=== PATIENT | male | born 1975 | race Caucasian/White ===

== ENCOUNTER 2020-12-07 07:19 | Emergency (ER) | payer OTHER ==
[2020-12-07 07:24] VITALS: BP 124/89; PULSE 99; RESP 20; TEMP 98.9
--- NOTE | 2020-12-07 07:43 | ED ---
General Adult HPI - General Chief complaint: Skin/Abscess/Foreign Body Stated complaint: Allergic reaction Time Seen by Provider: 12/07/20 07:20 Source: patient, RN notes reviewed, old records reviewed Mode of arrival: ambulatory Limitations: no limitations - History of Present Illness Initial comments: This is a 45-year-old male who presents emergency Department with some redness and a right posterior wrist. Patient states it started last night but today the redness is gotten worse in the pimple is gotten whiter. Patient states there is tender. Patient states is no streaking up the arm. Patient doesn't know if he got bit by something. Patient denies any fever chills. Patient denies any history of MRSA - Related Data Previous Rx's Medication Instructions Recorded Cephalexin [Keflex] 500 mg PO Q6HR #28 cap 12/07/20 Sulfamethox-Tmp 800-160Mg [Bactrim 1 each PO Q12HR #14 tab 12/07/20 DS 800-160 mg] Allergies Allergy/AdvReac Type Severity Reaction Status Date / Time codeine Allergy Rash/Hives Verified 12/07/20 07:25 Review of Systems ROS Statement: Those systems with pertinent positive or pertinent negative responses have been documented in the HPI. ROS Other: All systems not noted in ROS Statement are negative. Past Medical History Past Medical History: Diabetes Mellitus History of Any Multi-Drug Resistant Organisms: None Reported Past Surgical History: Cholecystectomy Additional Past Surgical History / Comment(s): Spleen, Pancreas Past Psychological History: Panic Disorder, Schizophrenia Smoking Status: Current every day smoker Past Alcohol Use History: None Reported Past Drug Use History: Marijuana General Exam - General Exam Comments Initial Comments: GENERAL Patient is well-developed and well-nourished. Patient is in mild distress. EYES Patient's pupils are equal and round. Extraocular motion is intact SKIN Right posterior wrist has a small area of redness measuring about 4 cm in the center is a small white pimple NEURO The patient is alert and oriented 3 PYSCH Patient has normal interpersonal interactions. MUSCULOSKELETAL All 4 extremities and full range of motion Limitations: no limitations Course Vital Signs 12/07/20 07:21 Temperature 98.9 F Pulse Rate 99 Respiratory 20 Rate Blood Pressure 124/89 O2 Sat by Pulse 99 Oximetry Procedures - Incision & Drainage Consent Obtained: verbal consent Site: other (Wrist) I&D Cleaning Method: Betadine Needle Aspiration Performed?: Yes Irrigation Performed?: No I&D Drainage Obtained: Pus, Blood Culture Obtained?: Yes Complications: pain Patient Tolerated Procedure: well Medical Decision Making - Medical Decision Making Patient was given a gram of Ancef IM in the emergency department. I I&D the abscess small amount of pus came out it was cultured. Patient was sent home with Bactrim and Keflex. Disposition Clinical Impression: Abscess, wrist Disposition: HOME SELF-CARE Instructions (If sedation given, give patient instructions): Abscess (ED) Prescriptions: Sulfamethox-Tmp 800-160Mg [Bactrim DS 800-160 mg] 1 each PO Q12HR #14 tab Cephalexin [Keflex] 500 mg PO Q6HR #28 cap Is patient prescribed a controlled substance at d/c from ED?: No Referrals: None,Stated [Primary Care Provider] - 1-2 days Time of Disposition: 07:47
[2020-12-07] MEDS ORDERED: ceFAZolin 1,000 MG VIAL (IM USE) IM STA (07:47)
== END 2020-12-07 07:57 | disposition home or self-care (01) ==
LOC: EC 07:19
DX: L02.413 Cutaneous abscess of right upper limb (principal)
CPT/HCPCS: 87070; 87205; 99283; 10060; 96372; J0690

== ENCOUNTER 2021-02-10 13:27 | Inpatient (IN) | payer OTHER ==
[2021-02-10] MEDS ORDERED: SODIUM CHLORIDE 0.9% 1,000 ML IV STA ×2 (13:33→15:17)
[2021-02-10] MEDS ORDERED: SODIUM CHLORIDE 0.9% 500 ML 500 ML IV ONE (13:33)
[2021-02-10] MEDS ORDERED: NALOXONE 0.4 MG/ML 1 ML VIAL IM STA (13:33)
[2021-02-10] MEDS ORDERED: DIPH,PERTUS(ACELL)TETVAC-LF 0.5 ML VIAL IM ONE (13:43)
[2021-02-10 13:45] LABS: Glucose,Whole Blood 167 mg/dL (75-99)
--- NOTE | 2021-02-10 13:47 | ED ---
Altered Mental Status HPI - General Chief Complaint: Altered Mental Status Stated Complaint: Fall/head injury Time Seen by Provider: 02/10/21 13:27 Source: patient, EMS, RN notes reviewed Mode of arrival: EMS Limitations: altered mental status, physical limitation - History of Present Illness Initial Comments: This a 45-year-old male with a history of schizophrenia and anxiety disorder possibly bipolar disorder and possibly a seizure disorder who was found by family lying on the ground outside he apparently had been seen in a car outside his mother's residence. He was arousable to verbal and physical stimulus he did have complaints of headache and neck pain. He did have evidence of a laceration to the left posterior occipital scalp area. No seizure reported. The patient blood glucose was adequate. Lites modifying factors at this time no other history available at this time MD Complaint: altered mental status - Related Data Home Medications Medication Instructions Recorded Confirmed Albuterol Sulfate [Albuterol 2 puff INHALATION RT-Q4H PRN 02/10/21 02/10/21 Sulfate Hfa] Ferrous Sulfate [Feosol] 325 mg PO BID 02/10/21 02/10/21 Fluticasone/Salmeterol [Advair 1 puff INHALATION RT-BID 02/10/21 02/10/21 250-50 Diskus] Gabapentin [Neurontin] 1,200 mg PO TID 02/10/21 02/10/21 Hyoscyamine Sulfate [Levsin] 0.125 mg PO Q6H PRN 02/10/21 02/10/21 Insulin Glargine,Hum.rec.anlog 48 unit SQ HS 02/10/21 02/10/21 [Lantus Solostar] Insulin Lispro [humaLOG Kwikpen] 12 unit SQ AC-BID@0800,1200 02/10/21 02/10/21 Insulin Lispro [humaLOG Kwikpen] 14 unit SQ AC-SUPPER 02/10/21 02/10/21 Insulin Lispro [humaLOG Kwikpen] See Protocol SQ AC-TID 02/10/21 02/10/21 Lidocaine 5% Patch [Lidoderm] 1 patch TOPICAL TID 02/10/21 02/10/21 Mirtazapine [Remeron] 30 mg PO HS 02/10/21 02/10/21 QUEtiapine [SEROquel] 400 mg PO HS 02/10/21 02/10/21 Rosuvastatin Calcium [Crestor] 10 mg PO DAILY 02/10/21 02/10/21 cloNIDine HCL [Catapres] 0.2 mg PO TID 02/10/21 02/10/21 haloperidoL [Haldol] 2 mg PO BID PRN 02/10/21 02/10/21 hydrOXYzine HCL 10 mg PO TID PRN 02/10/21 02/10/21 Allergies Allergy/AdvReac Type Severity Reaction Status Date / Time codeine Allergy Rash/Hives Verified 02/10/21 17:06 Review of Systems ROS Statement: Those systems with pertinent positive or pertinent negative responses have been documented in the HPI. ROS Other: All systems not noted in ROS Statement are negative. Past Medical History Past Medical History: Diabetes Mellitus History of Any Multi-Drug Resistant Organisms: None Reported Past Surgical History: Cholecystectomy Additional Past Surgical History / Comment(s): Spleen, Pancreas Past Psychological History: Panic Disorder, Schizophrenia Smoking Status: Current every day smoker Past Alcohol Use History: None Reported Past Drug Use History: Marijuana General Exam - General Exam Comments Initial Comments: Is a well-developed sec appearing male who is awake lethargic but does respond to questioning. Limitations: altered mental status, physical limitation General appearance: alert, lethargic Head exam: Present: other (Approximately 2 cm laceration seen the left occipital scalp no active bleeding no step-off or crepitation) Eye exam: Present: normal appearance, PERRL, EOMI ENT exam: Present: mucous membranes dry Neck exam: Present: normal inspection. Absent: tenderness, meningismus, lymphadenopathy Respiratory exam: Present: normal lung sounds bilaterally. Absent: respiratory distress, wheezes, rales, rhonchi, stridor Cardiovascular Exam: Present: regular rate, normal rhythm, normal heart sounds. Absent: systolic murmur, diastolic murmur, rubs, gallop, clicks GI/Abdominal exam: Present: soft, normal bowel sounds. Absent: distended, tenderness, guarding, rebound, rigid Extremities exam: Present: normal inspection, full ROM, normal capillary refill. Absent: tenderness, pedal edema, joint swelling, calf tenderness Back exam: Present: normal inspection Neurological exam: Present: alert, oriented X3, CN II-XII intact Psychiatric exam: Present: normal affect, normal mood Skin exam: Present: warm, dry, intact, normal color. Absent: rash Course Vital Signs 02/10/21 02/10/21 02/10/21 13:37 13:52 14:14 Temperature 97.6 F Pulse Rate 70 Respiratory 18 16 Rate Blood Pressure 99/71 103/67 O2 Sat by Pulse 100 Oximetry 02/10/21 02/10/21 15:16 16:21 Temperature Pulse Rate 75 82 Respiratory 18 18 Rate Blood Pressure 106/71 104/72 O2 Sat by Pulse 98 95 Oximetry Procedures - Laceration Laceration #1 Consent Obtained: verbal consent Indication: laceration Site: scalp Description: irregular, clean Anesthetic Used: lidocaine 1% Anesthesia Technique: local infiltration Amount (mls): 3 Type of Sutures: other (4 ann marie) Complications: other (None) Patient Tolerated Procedure: well Medical Decision Making - Medical Decision Making I did discuss findings with the patient's mother as well as with Dr. by Dr. Longo who did come the emergency department see the patient patient will be admitted for treatment of what appears be a stroke with prolonged postictal state. Dr. Vilma tavera consulted - Lab Data Result diagrams: 02/10/21 13:57 02/10/21 13:57 Lab Results 02/10/21 02/10/21 02/10/21 Range/Units 13:44 13:57 13:57 WBC 12.0 H (3.8-10.6) k/uL RBC 4.77 (4.30-5.90) m/uL Hgb 13.8 (13.0-17.5) gm/dL Hct 41.4 (39.0-53.0) % MCV 86.7 (80.0-100.0) fL MCH 28.9 (25.0-35.0) pg MCHC 33.4 (31.0-37.0) g/dL RDW 14.1 (11.5-15.5) % Plt Count 426 (150-450) k/uL MPV 7.9 Neutrophils % 67 % Lymphocytes % 25 % Monocytes % 6 % Eosinophils % 1 % Basophils % 1 % Neutrophils # 8.0 H (1.3-7.7) k/uL Lymphocytes # 3.0 (1.0-4.8) k/uL Monocytes # 0.7 (0-1.0) k/uL Eosinophils # 0.1 (0-0.7) k/uL Basophils # 0.1 (0-0.2) k/uL PT 12.2 H (9.0-12.0) sec INR 1.2 H (<1.2) APTT 25.1 (22.0-30.0) sec Sodium (137-145) mmol/L Potassium (3.5-5.1) mmol/L Chloride (98-107) mmol/L Carbon Dioxide (22-30) mmol/L Anion Gap mmol/L BUN (9-20) mg/dL Creatinine (0.66-1.25) mg/dL Est GFR (CKD-EPI)AfAm (>60 ml/min/1.73 sqM) Est GFR (CKD-EPI)NonAf (>60 ml/min/1.73 sqM) Glucose (74-99) mg/dL POC Glucose (mg/dL) 167 H (75-99) mg/dL POC Glu Surgical Sales Representative ID Azalia James Lactic Ac Sepsis Rflx Plasma Lactic Acid Aravind (0.7-2.0) mmol/L Calcium (8.4-10.2) mg/dL Magnesium (1.6-2.3) mg/dL Total Bilirubin (0.2-1.3) mg/dL AST (17-59) U/L ALT (4-49) U/L Alkaline Phosphatase (38-126) U/L Ammonia (<30) umol/L Creatine Kinase (55-170) U/L Troponin I (0.000-0.034) ng/mL Total Protein (6.3-8.2) g/dL Albumin (3.5-5.0) g/dL Lipase (23-300) U/L TSH (0.465-4.680) mIU/L Serum Alcohol mg/dL 02/10/21 02/10/21 02/10/21 Range/Units 13:57 13:57 13:57 WBC (3.8-10.6) k/uL RBC (4.30-5.90) m/uL Hgb (13.0-17.5) gm/dL Hct (39.0-53.0) % MCV (80.0-100.0) fL MCH (25.0-35.0) pg MCHC (31.0-37.0) g/dL RDW (11.5-15.5) % Plt Count (150-450) k/uL MPV Neutrophils % % Lymphocytes % % Monocytes % % Eosinophils % % Basophils % % Neutrophils # (1.3-7.7) k/uL Lymphocytes # (1.0-4.8) k/uL Monocytes # (0-1.0) k/uL Eosinophils # (0-0.7) k/uL Basophils # (0-0.2) k/uL PT (9.0-12.0) sec INR (<1.2) APTT (22.0-30.0) sec Sodium 136 L (137-145) mmol/L Potassium 4.4 (3.5-5.1) mmol/L Chloride 102 (98-107) mmol/L Carbon Dioxide 25 (22-30) mmol/L Anion Gap 9 mmol/L BUN 16 (9-20) mg/dL Creatinine 1.62 H (0.66-1.25) mg/dL Est GFR (CKD-EPI)AfAm 59 (>60 ml/min/1.73 sqM) Est GFR (CKD-EPI)NonAf 51 (>60 ml/min/1.73 sqM) Glucose 155 H (74-99) mg/dL POC Glucose (mg/dL) (75-99) mg/dL POC Glu Surgical Sales Representative ID Lactic Ac Sepsis Rflx Plasma Lactic Acid Aravind 2.3 H* (0.7-2.0) mmol/L Calcium 10.4 H (8.4-10.2) mg/dL Magnesium 2.1 (1.6-2.3) mg/dL Total Bilirubin 0.6 (0.2-1.3) mg/dL AST 30 (17-59) U/L ALT 26 (4-49) U/L Alkaline Phosphatase 111 (38-126) U/L Ammonia 17 (<30) umol/L Creatine Kinase 104 (55-170) U/L Troponin I <0.012 (0.000-0.034) ng/mL Total Protein 7.5 (6.3-8.2) g/dL Albumin 4.5 (3.5-5.0) g/dL Lipase 74 (23-300) U/L TSH 1.640 (0.465-4.680) mIU/L Serum Alcohol <10 mg/dL 02/10/21 Range/Units 14:21 WBC (3.8-10.6) k/uL RBC (4.30-5.90) m/uL Hgb (13.0-17.5) gm/dL Hct (39.0-53.0) % MCV (80.0-100.0) fL MCH (25.0-35.0) pg MCHC (31.0-37.0) g/dL RDW (11.5-15.5) % Plt Count (150-450) k/uL MPV Neutrophils % % Lymphocytes % % Monocytes % % Eosinophils % % Basophils % % Neutrophils # (1.3-7.7) k/uL Lymphocytes # (1.0-4.8) k/uL Monocytes # (0-1.0) k/uL Eosinophils # (0-0.7) k/uL Basophils # (0-0.2) k/uL PT (9.0-12.0) sec INR (<1.2) APTT (22.0-30.0) sec Sodium (137-145) mmol/L Potassium (3.5-5.1) mmol/L Chloride (98-107) mmol/L Carbon Dioxide (22-30) mmol/L Anion Gap mmol/L BUN (9-20) mg/dL Creatinine (0.66-1.25) mg/dL Est GFR (CKD-EPI)AfAm (>60 ml/min/1.73 sqM) Est GFR (CKD-EPI)NonAf (>60 ml/min/1.73 sqM) Glucose (74-99) mg/dL POC Glucose (mg/dL) (75-99) mg/dL POC Glu Surgical Sales Representative ID Lactic Ac Sepsis Rflx Y Plasma Lactic Acid Aravind (0.7-2.0) mmol/L Calcium (8.4-10.2) mg/dL Magnesium (1.6-2.3) mg/dL Total Bilirubin (0.2-1.3) mg/dL AST (17-59) U/L ALT (4-49) U/L Alkaline Phosphatase (38-126) U/L Ammonia (<30) umol/L Creatine Kinase (55-170) U/L Troponin I (0.000-0.034) ng/mL Total Protein (6.3-8.2) g/dL Albumin (3.5-5.0) g/dL Lipase (23-300) U/L TSH (0.465-4.680) mIU/L Serum Alcohol mg/dL - EKG Data -: EKG Interpreted by Me EKG Comments: Sinus rhythm at 74. Interval 140 QRS duration 88 QT since QTC 420/475 nonspecific T-wave configuration prolonged QT - Radiology Data Radiology results: report reviewed (Imaging reviewed no evidence of acute findings other than scalp laceration I did remove the cervical collar and 1605 p.m.), image reviewed Disposition Clinical Impression: Seizure, Post-ictal confusion, Scalp laceration, Smoker Disposition: ADMITTED IP TO THIS [facility] Condition: Fair
--- NOTE | 2021-02-10 13:58 | XR ---
EXAMINATION TYPE: XR chest 1V portable DATE OF EXAM: 02/10/2021 Comparison: 10/29/2012 Clinical History: 45-year-old male confusion, altered mental status Findings: The cardiomediastinal silhouette, aorta, and pulmonary vasculature are within normal limits. Mild in terstitial prominence as a chronic appearance. No consolidation or pleural effusion. Impression: Chronic appearing changes. No focal infiltrates seen.
[2021-02-10 14:09] LABS: Basophils # (A) 0.1 k/uL (0-0.2); Basophils % (A) 1 %; Eosinophils # (A) 0.1 k/uL (0-0.7); Eosinophils % (A) 1 %; HCT 41.4 % (39.0-53.0); HGB 13.8 gm/dL (13.0-17.5); Lymphocytes % (A) 25 %; MCH 28.9 pg (25.0-35.0); MCHC 33.4 g/dL (31.0-37.0); MCV 86.7 fL (80.0-100.0); Mean Platelet Volume 7.9; Monocytes # (A) 0.7 k/uL (0-1.0); Monocytes % (A) 6 %; Neutrophils % (A) 67 %; Platelet Count 426 k/uL (150-450); RBC 4.77 m/uL (4.30-5.90); RDW 14.1 % (11.5-15.5)
[2021-02-10 14:20] LABS: ALT 26 U/L (4-49); AST 30 U/L (17-59); African American GFR (CKD) 59 (>60 ml/min/1.73 sqM); Albumin 4.5 g/dL (3.5-5.0); Alcohol <10 mg/dL; Alkaline Phosphatase 111 U/L (38-126); Anion Gap 9 mmol/L; Blood Urea Nitrogen 16 mg/dL (9-20); Calcium 10.4 mg/dL (8.4-10.2); Carbon Dioxide 25 mmol/L (22-30); Chloride 102 mmol/L (98-107); Creatine Kinase 104 U/L (55-170); Glucose 155 mg/dL (74-99); Lipase 74 U/L (23-300); Magnesium 2.1 mg/dL (1.6-2.3); Non-African American GFR(CKD) 51 (>60 ml/min/1.73 sqM); Potassium 4.4 mmol/L (3.5-5.1); Sodium 136 mmol/L (137-145); Total Bilirubin 0.6 mg/dL (0.2-1.3); Total Protein 7.5 g/dL (6.3-8.2)
[2021-02-10 14:21] LABS: Lactic Acid, Venous 2.3 mmol/L (0.7-2.0)
[2021-02-10 14:27] LABS: INR 1.2 (<1.2); Partial Thromboplastin Time 25.1 sec (22.0-30.0); Prothrombin Time 12.2 sec (9.0-12.0)
--- NOTE | 2021-02-10 14:49 | CT ---
EXAMINATION TYPE: CT brain ektaine wo con DATE OF EXAM: 02/10/2021 COMPARISON: Brain 02/02/2012 HISTORY: 45-year-old male pain after fall with blow to back of head, laceration CT DLP: 1406 mGycm Automated exposure control for dose reduction was used. Technique: Examination of the head was done in axial plane without intravenous contrast. Coronal and sagittal reconstructions performed. CT of the cervical spine was obtained in axial plane without intravenous injection of contrast mater ial. Coronal and sagittal reformatted images were obtained from the axial views for evaluation of f ractures, spinal alignment and canal. FINDINGS: Head: There is no evidence of acute intracranial hemorrhage, acute ischemic changes, mass, mass-effect, or extra-axial fluid collection. There is no effacement of cerebral sulci or basal subarachnoid cister ns. There is no hydrocephalus. There is no midline shift. Higginbotham-white matter distinction is preserv ed. There is a left parietal scalp injury/laceration. No underlying calvarial fracture. Mild mucosal thickening ethmoid air cells. Mastoid air cells well pneumatized. Orbits and globes are intact. Cervical spine: No craniocervical junction abnormality, predental space widening, or prevertebral soft tissue swellin g. Straightening of the normal cervical lordosis. Prominent upper cervical lymph nodes measuring up t o 1.2 cm on the right. Bilateral lingual tonsillar hypertrophy. No acute fracture of the cervical spine. Alignment is maintained. Disc interspaces are relatively aaron ntained. Mild uncovertebral joint spurring upper to mid cervical spine. Sagittal and coronal reformatted images confirm above findings. COMBINED IMPRESSION: 1. Left parietal scalp laceration. No underlying acute intracranial abnormality seen. 2. No acute fracture or malalignment of the cervical spine. 3. Some prominent upper cervical lymph nodes on the right measure 1.2 cm. These are probably reactive . Patient can be followed clinically to exclude any enlarging palpable lymph nodes in the neck.
[2021-02-10] MEDS ORDERED: levETIRAcetam IV 1,000 MG in SALINE 1 100ML.BAG IVPB STA (16:22)
[2021-02-10] MEDS ORDERED: NALOXONE 0.4 MG/ML 1 ML VIAL IV PRN ×2 (16:31→16:50)
[2021-02-10] MEDS ORDERED: LORazepam 2 MG/ML INJ IV PRN (16:31)
[2021-02-10] MEDS ORDERED: NICOTINE 21MG/24HR PATCH TRANSDERM STA (16:52)
[2021-02-10] MEDS ORDERED: LIDOCAINE 1% INJ 10MG/ML (20 ML MDV) SQ ONE (16:55)
--- NOTE | 2021-02-10 17:07 | P.HPIM ---
History of Present Illness H&P Date: 02/10/21 Chief Complaint: Fall, Head Lac, AMS 45-year-old man with medical history of schizophrenia, anxiety disorder, bipolar disorder, possibly seizure disorder presented after being found lying on the ground outside of his car. Patient is a poor historian and history is taken fro m chart review, ER provider signout. From my understanding, Patient had an unwitnessed fall, and when he was found, had immediate response. He was able to get seated in a bench nearby, and EMS was called for transport to the emergency room. Patient has a history of seizure disorder, however, medications that he takes at home are unclear. Patient has an odd living situation, and lives out of his car outside of his mother's complex for now. Leading up to this incident, patient had been in his usual state of health. Patient does minimally participate in review of systems, and reports no symptoms of fevers, chills, nausea, vomiting, chest pain, syncope, presyncope, cough, dyspnea, abdominal pain, diarrhea, constipation, numbness/weakness of extremities. He denies any rashes. He does report neck pain. In the emergency room, patient was hemodynamically stable, afebrile. CBC demonstrated leukocytosis to 12. Coags demonstrated a PT of 12.2, INR 1.2. Chemistries demonstrated creatinine of 1.6, with unknown baseline. Sugars were elevated. Lactic acid was elevated at 2.3. Calcium was mildly elevated at 10.4. LFTs were unremarkable., Troponin was unremarkable, TSH was unremark able. EtOH level is negative. U tox is pending. UA was pending. Head CT was negative for intracranial hemorrhage, but did show soft tissue swelling in both cervical prevertebral space as well as occipital area. He was found to have incidental cervical lymph nodes measuring 1.2 cm, likely reactive. Review of Systems All Systems reviewed and pertinent positives and negatives noted in HPI, all other symptoms are negative Past Medical History Past Medical History: Diabetes Mellitus History of Any Multi-Drug Resistant Organisms: None Reported Past Surgical History: Cholecystectomy Additional Past Surgical History / Comment(s): Spleen, Pancreas Past Psychological History: Panic Disorder, Schizophrenia Smoking Status: Current every day smoker Past Alcohol Use History: None Reported Past Drug Use History: Marijuana Medications and Allergies Allergies Allergy/AdvReac Type Severity Reaction Status Date / Time codeine Allergy Rash/Hives Verified 12/07/20 07:25 Physical Exam Osteopathic Statement: *. No significant issues noted on an osteopathic structural exam other than those noted in the History and Physical/Consult. Vitals: Vital Signs Temp Pulse Resp BP Pulse Ox 02/10/21 16:21 82 18 104/72 95 02/10/21 15:16 75 18 106/71 98 02/10/21 14:14 103/67 02/10/21 13:52 16 02/10/21 13:37 97.6 F 70 18 99/71 100 Intake and Output 02/10/21 02/10/21 02/10/21 06:59 14:59 22:59 Other: Weight 81.193 kg Gen: awake, alert HEENT: Posterior occipital laceration, good hearing acuity, dry mucous membranes, edentulous, posterior pharyngeal injection; palpable anterior cervical lymph node in the left, tenderness to palpation of the esophagus and posterior neck Resp: good air exchange, breathing comfortably with no accessory muscle use CVS: good distal perfusion x 4,, regular rate and rhythm without murmurs GI: soft, NTTP, ND, appropriate bowel sounds : no SPT, no CVAT, mejia catheter not present MSK: no pitting edema, no clubbing Neuro: non-focal, moving all extremities Psych: cooperative, depressed mood Results CBC & Chem 7: 02/10/21 13:57 02/10/21 13:57 Labs: Abnormal Lab Results - Last 24 Hours (Table) 02/10/21 02/10/21 02/10/21 Range/Units 13:44 13:57 13:57 WBC 12.0 H (3.8-10.6) k/uL Neutrophils # 8.0 H (1.3-7.7) k/uL PT 12.2 H (9.0-12.0) sec INR 1.2 H (<1.2) Sodium (137-145) mmol/L Creatinine (0.66-1.25) mg/dL Glucose (74-99) mg/dL POC Glucose (mg/dL) 167 H (75-99) mg/dL Plasma Lactic Acid Aravind (0.7-2.0) mmol/L Calcium (8.4-10.2) mg/dL 02/10/21 02/10/21 Range/Units 13:57 13:57 WBC (3.8-10.6) k/uL Neutrophils # (1.3-7.7) k/uL PT (9.0-12.0) sec INR (<1.2) Sodium 136 L (137-145) mmol/L Creatinine 1.62 H (0.66-1.25) mg/dL Glucose 155 H (74-99) mg/dL POC Glucose (mg/dL) (75-99) mg/dL Plasma Lactic Acid Aravind 2.3 H* (0.7-2.0) mmol/L Calcium 10.4 H (8.4-10.2) mg/dL Assessment and Plan Assessment: Syncope Occipital head laceration Neck pain Anterior cervical lymph node -Admit to observation, telemetry -Neurology consult -Keppra loaded in the ER, Keppra 750 mg twice a day -Ativan when necessary for seizures -Seizure, fall precautions -Neurochecks -Pain control -Regular diet -We'll clinically follow for increasing or spreading lymphadenopathy -IV fluids and 125 mL per hour Schizoaffective disorder Anxiety disorder -All medications need to be investigated further Patient is a full code Mother is next of kin
[2021-02-10] MEDS: SODIUM CHLORIDE 0.9% 1,000 ML IV SCH ×2 (17:08→20:51)
[2021-02-10 18:20] LABS: Glucose,Whole Blood 140 mg/dL (75-99)
[2021-02-10] MEDS: INSULIN ASPART (NovoLOG) 100 UNIT/ML VIAL SQ SCH (18:30)
--- NOTE | 2021-02-10 18:52 | P.CNNES ---
History of Present Illness Consult date: 02/10/21 Requesting physician: Tatum Longo Reason for Consult: seizure History of Present Illness: This is a 45-year-old gentleman with medical history of seizure disorder, schizophrenia, anxiety and bipolar who presented to [facility] emergency department via EMS on the 02/10/2021 after being found down on the ground outside his car. Some of the history is obtained from medical records because of patient refusal to cooperate. Upon seeing the patient he stated that he has history of seizures upon going more details he asked me why am asking him questions and the patient was having attitude. He was becoming very frustrated home asked him about his seizure history and what that presented him to the hospital. He notify me that he has history of seizures and he hasn't had seizures in years and he said that he was on 20 different medications in the past but cannot tell me the what medications other than Depakote and that he couldn't tolerated he said that he hasn't been on medication for years. Upon as sven him on his seizures the semiology and the what type of seizures his previous neurologist diagnosed him with in the workup patient was frustrated about these questions. He stated that he was in was constant and he will move back to [place] lately. He denies off alcohol use. He stated that he uses marijuana. He denies of any illicit drug use. Per medical record is seems that the patient had unwitnessed fall and was found to have immediate response. He was seated in a bench nearby as a result EMS was called. Patient has altered living situation and lives outside of his car outside of his mother complex. Per the patient nurse he has been argumentative with her as well. Patient is on the Buspirone 30 mg 1 tablet twice a day and he is not on any seizure medication. Also is on Gabapentin for his neuropathy. Some of the workup in the hospital consisted of: Initial vital signs: Blood pressure of 599/71, heart rate of 70, temperature of 97.6 Fahrenheit oral, history of 18, pulse ox of 100% room air. CT of the head is reported as left parietal scalp laceration. No acute intracranial abnormality seen. CT of the neck was reported as no acute fracture or smell alignment of the cervical spine. Some prominent upper cervical node of the right measures 1.2 cm. These are probably reactive. Patient can be followed clinically to exclude any enlarging palpable lymph node in the neck. EKG is reported as normal sinus rhythm. Nonspecific T wave abnormality. Prolonged QT. Abnormal EKG. Initial white blood cell 12.0 Plasma lactic acid vein is 2.3 which is elevated. Creatinine is 1.62 initial glucose of 155. Calcium 7.4 was slightly elevated. Magnesium is 2.1 which is normal. Ammonia 17 which is normal TSH is 1.64 which is normal. Alcohol level is less than 10. Review of Systems Review of system: is limited and the pertinent positive and negative as per HPI. Past Medical History Past Medical History: Diabetes Mellitus History of Any Multi-Drug Resistant Organisms: None Reported Past Surgical History: Cholecystectomy Additional Past Surgical History / Comment(s): Spleen, Pancreas Past Psychological History: Panic Disorder, Schizophrenia Smoking Status: Current every day smoker Past Alcohol Use History: None Reported Past Drug Use History: Marijuana Medications and Allergies Home Medications Medication Instructions Recorded Confirmed Type Albuterol Sulfate [Albuterol 2 puff INHALATION RT-Q4H PRN 02/10/21 02/10/21 History Sulfate Hfa] Ferrous Sulfate [Feosol] 325 mg PO BID 02/10/21 02/10/21 History Fluticasone/Salmeterol [Advair 1 puff INHALATION RT-BID 02/10/21 02/10/21 History 250-50 Diskus] Gabapentin [Neurontin] 1,200 mg PO TID 02/10/21 02/10/21 History Insulin Glargine,Hum.rec.anlog 48 unit SQ HS 02/10/21 02/10/21 History [Lantus Solostar] Insulin Lispro [humaLOG Kwikpen] See Protocol SQ AC-TID 02/10/21 02/10/21 History Lidocaine 5% Patch [Lidoderm] 1 patch TOPICAL TID 02/10/21 02/10/21 History Ondansetron [Zofran ODT] 4 mg PO TID PRN 02/10/21 02/10/21 History QUEtiapine [SEROquel] 400 mg PO HS 02/10/21 02/10/21 History Rosuvastatin Calcium [Crestor] 10 mg PO DAILY 02/10/21 02/10/21 History busPIRone HCL [Buspar] 30 mg PO BID 02/10/21 02/10/21 History cloNIDine HCL [Catapres] 0.2 mg PO TID 02/10/21 02/10/21 History haloperidoL [Haldol] 2 mg PO BID PRN 02/10/21 02/10/21 History hydrOXYzine HCL 10 mg PO TID PRN 02/10/21 02/10/21 History Allergies Allergy/AdvReac Type Severity Reaction Status Date / Time codeine Allergy Rash/Hives Verified 02/10/21 17:06 Physical Examination - Vital Signs Vital Signs: Vital Signs Temp Pulse Resp BP Pulse Ox 02/10/21 16:21 82 18 104/72 95 02/10/21 15:16 75 18 106/71 98 02/10/21 14:14 103/67 02/10/21 13:52 16 02/10/21 13:37 97.6 F 70 18 99/71 100 Intake and Output 02/10/21 02/10/21 02/10/21 06:59 14:59 22:59 Other: Weight 81.193 kg GENERAL: The patient is lying and very uncooperative and upset with being questioned. Therefore exam is limited as result CHEST: Unable to determine because of his cooperation. LUNG: Not labored breathing. Otherwise unable to determine because of cooperation. ABDOMEN/GI: Unable to determine because of his cooperation. PSYCH: Is argumentative has bad demeanor. NEUROLOGICAL: Limited because of cooperation. Higher mental function: The patient is awake, alert, oriented to self, place and time. Patient is following few simple commands. No aphasia and no neglect. Cranial nerves: No facial weakness No dysarthria is noted. Otherwise unable to determine because of cooperation. y. Motor: Gait is deferred because of cooperation. The strength is could not assess upper extremities because he said he can't because of pain. While is lifting bilateral lower extremities above gravity. No spontaneous movement. Cerebellum: Unable to exam Sensation: Normal to touch in the lower extremity otherwise unable to assess upper Reflexes (right/left): Unable to assess because of cooperation. Results - Laboratory Findings CBC and BMP: 02/10/21 13:57 02/10/21 13:57 Abnormal Lab Findings: Abnormal Labs 02/10/21 02/10/21 02/10/21 13:44 13:57 13:57 WBC 12.0 H Neutrophils # 8.0 H PT 12.2 H INR 1.2 H Sodium Creatinine Glucose POC Glucose (mg/dL) 167 H Plasma Lactic Acid Aravind Calcium 02/10/21 02/10/21 13:57 13:57 WBC Neutrophils # PT INR Sodium 136 L Creatinine 1.62 H Glucose 155 H POC Glucose (mg/dL) Plasma Lactic Acid Aravind 2.3 H* Calcium 10.4 H Assessment and Plan Assessment: Syncope episode. Possibly seizure (Without certainty since possibly he has history of seizure). Rule out cardiac in etiology. History of seizure (unable to retrieve history from patient since uncooperative) Hostile behavior Anterior cervical lymph node Schizoaffective disorder Anxiety disorder Plan: CT of the head is reported as left parietal scalp laceration. No acute intracranial abnormality seen. CT of the neck was reported as no acute fracture or smell alignment of the cervical spine. Some prominent upper cervical node of the right measures 1.2 cm. These are probably reactive. Patient can be followed clinically to exclude any enlarging palpable lymph node in the neck. TSH is 1.64 which is normal. Alcohol level is less than 10. In the ED the patient was loaded with the Keppra 1000 mg then was started on Keppra [address] [employer] twice a day Seizure precaution fall precaution Q4 hour neuro checks. Please avoid Buspirone which can lower seizure threshold. I could not get the patient history of seizures or current syncopal episode. He was very hostile during the history and physical exam. I recommend that he needs to follow-up with a neurologist as an outpatient and get further testing and management as an outpatient. Consider psychiatry consultation especially with the patient the psych history and social dynamic issues. Because of the patient's syncopal episode the per the DMV the patient cannot drive for 6 month until loss no further seizure/syncopal episodes. 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 The plan is discussed with the patient's nurse. No further work-up Please notify neurology if any further assistance is needed. Thank you for the consultation. Pramod Esaprza MD Neuro-Hospitalist Time with Patient: Greater than 30
[2021-02-10 20:28] LABS: Glucose,Whole Blood 122 mg/dL (75-99)
[2021-02-10] MEDS ORDERED: levETIRAcetam IV 750 MG in SODIUM CHLORIDE 0.9% 100 ML IVPB SCH (21:00)
[2021-02-10] MEDS: ACETAMINOPHEN TAB 325 MG TAB PO PRN (21:30)
[2021-02-11] MEDS ORDERED: HEPARIN SODIUM,PORCINE/PF 5,000 UNIT/0.5 ML SYRINGE SQ SCH
[2021-02-11] MEDS: ACETAMINOPHEN TAB 325 MG TAB PO PRN (02:57)
[2021-02-11] MEDS: SODIUM CHLORIDE 0.9% 1,000 ML IV SCH (02:58)
[2021-02-11 03:41] VITALS: BP 112/70; PULSE 82; RESP 16; TEMP 97.6
[2021-02-11 05:33] LABS: Appearance,Urine Clear (Clear); Bilirubin,Urine Negative (Negative); Blood,Urine Negative (Negative); Color,Urine Yellow; Glucose,Urine (UA) 2+ (Negative); Ketones,Urine Negative (Negative); Leukocyte Esterase,Urine Negative (Negative); Nitrite,Urine Negative (Negative); Protein,Urine Trace (Negative); Specific Gravity,Urine 1.016 (1.001-1.035); Urobilinogen,Urine <2.0 mg/dL (<2.0)
[2021-02-11 05:48] LABS: Amphetamine Screen,Urine Detected (NotDetected); Benzodiazepines Screen,Urine Not Detected (NotDetected); Cocaine Screen,Urine Not Detected (NotDetected); Opiate Screen,Urine Not Detected (NotDetected); Phencyclidine Screen,Urine Not Detected (NotDetected)
[2021-02-11 05:49] LABS: Barbiturate Screen,Urine Not Detected (NotDetected); Methadone Screen, Urine Not Detected (NotDetected); Oxycodone Screen, Urine Not Detected (NotDetected); Tricyclic Antidepressant,Urine Detected (NotDetected); Urn Cannabinoid Scrn Detected (NotDetected)
[2021-02-11 06:24] LABS: Glucose,Whole Blood 182 mg/dL (75-99)
[2021-02-11] MEDS: INSULIN ASPART (NovoLOG) 100 UNIT/ML VIAL SQ SCH (06:25)
[2021-02-11 07:52] LABS: Basophils # (A) 0.1 k/uL (0-0.2); Basophils % (A) 1 %; Eosinophils # (A) 0.1 k/uL (0-0.7); Eosinophils % (A) 1 %; HCT 39.5 % (39.0-53.0); HGB 13.3 gm/dL (13.0-17.5); Lymphocytes # (A) 4.1 k/uL (1.0-4.8); Lymphocytes % (A) 37 %; MCH 29.3 pg (25.0-35.0); MCHC 33.6 g/dL (31.0-37.0); MCV 87.1 fL (80.0-100.0); Mean Platelet Volume 7.9; Monocytes % (A) 9 %; Neutrophils # (A) 5.7 k/uL (1.3-7.7); Neutrophils % (A) 51 %; Platelet Count 383 k/uL (150-450); RBC 4.54 m/uL (4.30-5.90); WBC 11.2 k/uL (3.8-10.6)
[2021-02-11 08:23] LABS: African American GFR (CKD) >90 (>60 ml/min/1.73 sqM); Anion Gap 1 mmol/L; Blood Urea Nitrogen 15 mg/dL (9-20); Calcium 9.4 mg/dL (8.4-10.2); Carbon Dioxide 27 mmol/L (22-30); Chloride 110 mmol/L (98-107); Glucose 127 mg/dL (74-99); Non-African American GFR(CKD) >90 (>60 ml/min/1.73 sqM); Potassium 4.4 mmol/L (3.5-5.1); Sodium 138 mmol/L (137-145)
--- NOTE | 2021-02-11 15:05 | P.DS ---
Providers Date of admission: 02/10/21 16:50 Expected date of discharge: 02/11/21 Attending physician: Tatum Longo MD Consults: 02/10/21 16:35 Consult Physician Routine Consulting Provider: Pramod Esparza Consult Reason/Comments: seizure Do you want consulting provider notified?: Yes Primary care physician: Stated None Hospital Course: Syncope Occipital head laceration Neck pain Anterior cervical lymph node Schizoaffective disorder Anxiety disorder Patient was admitted as observation, telemetry. Neurology was consulted, he received Keppra while in house. Patient had an uneventful overnight course. However, the next day he wanted to leave AGAINST MEDICAL ADVICE prior to my evaluation. He left the hospital prior to any prescriptions being prescribed or follow-up set up. Patient Condition at Discharge: Undetermined Plan - Discharge Summary Discharge Rx Participant: Yes New Discharge Prescriptions: No Action Albuterol Sulfate [Albuterol Sulfate Hfa] 2 puff INHALATION RT-Q4H PRN PRN Reason: Shortness Of Breath cloNIDine HCL [Catapres] 0.2 mg PO TID Ferrous Sulfate [Feosol] 325 mg PO BID hydrOXYzine HCL 10 mg PO TID PRN PRN Reason: Anxiety Insulin Glargine,Hum.rec.anlog [Lantus Solostar] 48 unit SQ HS QUEtiapine [SEROquel] 400 mg PO HS Rosuvastatin Calcium [Crestor] 10 mg PO DAILY Ondansetron [Zofran ODT] 4 mg PO TID PRN PRN Reason: Nausea Fluticasone/Salmeterol [Advair 250-50 Diskus] 1 puff INHALATION RT-BID Gabapentin [Neurontin] 1,200 mg PO TID haloperidoL [Haldol] 2 mg PO BID PRN PRN Reason: Agitation Insulin Lispro [humaLOG Kwikpen] See Protocol SQ AC-TID Lidocaine 5% Patch [Lidoderm] 1 patch TOPICAL TID busPIRone HCL [Buspar] 30 mg PO BID Discharge Medication List Albuterol Sulfate [Albuterol Sulfate Hfa] 2 puff INHALATION RT-Q4H PRN 02/10/21 [History] Ferrous Sulfate [Feosol] 325 mg PO BID 02/10/21 [History] Fluticasone/Salmeterol [Advair 250-50 Diskus] 1 puff INHALATION RT-BID 02/10/21 [History] Gabapentin [Neurontin] 1,200 mg PO TID 02/10/21 [History] Insulin Glargine,Hum.rec.anlog [Lantus Solostar] 48 unit SQ HS 02/10/21 [History] Insulin Lispro [humaLOG Kwikpen] See Protocol SQ AC-TID 02/10/21 [History] Lidocaine 5% Patch [Lidoderm] 1 patch TOPICAL TID 02/10/21 [History] Ondansetron [Zofran ODT] 4 mg PO TID PRN 02/10/21 [History] QUEtiapine [SEROquel] 400 mg PO HS 02/10/21 [History] Rosuvastatin Calcium [Crestor] 10 mg PO DAILY 02/10/21 [History] busPIRone HCL [Buspar] 30 mg PO BID 02/10/21 [History] cloNIDine HCL [Catapres] 0.2 mg PO TID 02/10/21 [History] haloperidoL [Haldol] 2 mg PO BID PRN 02/10/21 [History] hydrOXYzine HCL 10 mg PO TID PRN 02/10/21 [History] Follow up Appointment(s)/Referral(s): None,Stated [Primary Care Provider] - 1-2 days Discharge Disposition: Left Against Medical Advice
== END 2021-02-11 08:56 | disposition left against medical advice (07) | DRG 101 ==
LOC: EC 13:27 → 3SCARD 16:50
PROVIDERS: ADMIT Internal Medicine; ATTEND Internal Medicine
PROC: 0HQ0XZZ Repair Scalp Skin, External Approach (ICD-10-PCS; principal; 2021-02-10)
DX: G40.909 Epilepsy, unspecified, not intractable, without status epilepticus (principal); D72.829 Elevated white blood cell count, unspecified; E11.9 Type 2 diabetes mellitus without complications; F17.210 Nicotine dependence, cigarettes, uncomplicated; F25.9 Schizoaffective disorder, unspecified; F31.9 Bipolar disorder, unspecified; F41.0 Panic disorder [episodic paroxysmal anxiety]; G62.9 Polyneuropathy, unspecified; S01.01XA Laceration without foreign body of scalp, initial encounter; W19.XXXA Unspecified fall, initial encounter; Z79.4 Long term (current) use of insulin; Z79.899 Other long term (current) drug therapy; Z90.49 Acquired absence of other specified parts of digestive tract; Z88.5 Allergy status to narcotic agent; Z88.8 Allergy status to other drugs, medicaments and biological substances; Z20.822 Contact with and (suspected) exposure to COVID-19
CPT/HCPCS: 36415; 70450; 71045; 72125; 80048; 80053; 80306; 80320; 81003; 82140; 82550; 83605; 83690; 83735; 84443; 84484; 85025; 85610; 85730; 87635; 90471; 90715; 93005; 94760; 96361; 96372; 96374; 99285

== ENCOUNTER 2021-02-12 11:57 | Emergency (ER) | payer OTHER ==
[2021-02-12 12:07] VITALS: RESP 18
--- NOTE | 2021-02-12 12:29 | ED ---
General Adult HPI - General Chief complaint: Recheck/Abnormal Lab/Rx Stated complaint: Revisit - Head/Neck Pain Time Seen by Provider: 02/12/21 12:12 Source: patient, RN notes reviewed, old records reviewed Mode of arrival: ambulatory Limitations: no limitations - History of Present Illness Initial comments: Patient is a pleasant 45-year-old male presenting to the emergency department with concerns for recent seizure. Patient states this was witnessed by other people however he does not recall the episode. Patient states he does have a remote history of seizures however not in many years. Patient states he did leave the hospital secondary to he thought there was a problem with his insurance changing. Patient states he does have this figured out now. Patient is still having some neck discomfort and mild headache. There has been mild improvement since the incident. Previous chart was reviewed including previous CT scanned. Patient denies any confusion or weakness. No fevers. Patient denies drug use other than marijuana. Patient denies alcohol use. - Related Data Home Medications Medication Instructions Recorded Confirmed Albuterol Sulfate [Albuterol 2 puff INHALATION RT-Q4H PRN 02/10/21 02/12/21 Sulfate Hfa] Ferrous Sulfate [Feosol] 325 mg PO BID 02/10/21 02/12/21 Fluticasone/Salmeterol [Advair 1 puff INHALATION RT-BID 02/10/21 02/12/21 250-50 Diskus] Gabapentin [Neurontin] 1,200 mg PO TID 02/10/21 02/12/21 Insulin Glargine,Hum.rec.anlog 48 unit SQ HS 02/10/21 02/12/21 [Lantus Solostar] Insulin Lispro [humaLOG Kwikpen] See Protocol SQ AC-TID 02/10/21 02/12/21 Lidocaine 5% Patch [Lidoderm] 1 patch TOPICAL TID 02/10/21 02/12/21 Ondansetron [Zofran ODT] 4 mg PO TID PRN 02/10/21 02/12/21 QUEtiapine [SEROquel] 400 mg PO HS 02/10/21 02/12/21 Rosuvastatin Calcium [Crestor] 10 mg PO DAILY 02/10/21 02/12/21 busPIRone HCL [Buspar] 30 mg PO BID 02/10/21 02/12/21 cloNIDine HCL [Catapres] 0.2 mg PO TID 02/10/21 02/12/21 haloperidoL [Haldol] 2 mg PO BID PRN 02/10/21 02/12/21 hydrOXYzine HCL 10 mg PO TID PRN 02/10/21 02/12/21 Previous Rx's Medication Instructions Recorded Cyclobenzaprine [Flexeril] 10 mg PO TID PRN #12 tablet 02/12/21 levETIRAcetam [Keppra] 1 tab PO BID #28 tab 02/12/21 Allergies Allergy/AdvReac Type Severity Reaction Status Date / Time codeine Allergy Rash/Hives Verified 02/12/21 12:38 meloxicam Allergy Unknown Verified 02/12/21 12:38 Review of Systems ROS Statement: Those systems with pertinent positive or pertinent negative responses have been documented in the HPI. ROS Other: All systems not noted in ROS Statement are negative. Constitutional: Denies: fever Eyes: Denies: eye pain ENT: Denies: ear pain Respiratory: Denies: cough Cardiovascular: Denies: chest pain Endocrine: Denies: fatigue Gastrointestinal: Denies: abdominal pain Genitourinary: Denies: dysuria Musculoskeletal: Denies: back pain Skin: Denies: rash Neurological: Reports: as per HPI. Denies: weakness, confusion Past Medical History Past Medical History: Diabetes Mellitus, Seizure Disorder History of Any Multi-Drug Resistant Organisms: None Reported Past Surgical History: Cholecystectomy Additional Past Surgical History / Comment(s): Spleen, Pancreas Past Anesthesia/Blood Transfusion Reactions: No Reported Reaction Past Psychological History: Bipolar, Panic Disorder, Schizophrenia Smoking Status: Current every day smoker Past Alcohol Use History: None Reported Past Drug Use History: Marijuana - Past Family History Mother Family Medical History: Cancer, Hypertension Additional Family Medical History / Comment(s): breast ca Father Family Medical History: Coronary Artery Disease (CAD) General Exam Limitations: no limitations General appearance: alert, in no apparent distress Head exam: Present: atraumatic Eye exam: Present: normal appearance, PERRL, EOMI. Absent: nystagmus ENT exam: Present: normal oropharynx Neck exam: Present: normal inspection, other (No vertebral tenderness to palpation) Respiratory exam: Present: normal lung sounds bilaterally Cardiovascular Exam: Present: regular rate, normal rhythm GI/Abdominal exam: Present: soft. Absent: tenderness Extremities exam: Present: normal inspection, full ROM. Absent: tenderness Back exam: Present: normal inspection. Absent: vertebral tenderness Neurological exam: Present: alert, oriented X3, CN II-XII intact. Absent: motor sensory deficit Expanded Neurological exam: Present: protecting the airway Patient oriented to: Present: person, place, time Speech: Present: fluid speech Cranial nerves: EOM's Intact: Normal Motor strength exam: RUE: 5, LUE: 5, RLE: 5, LLE: 5 Eye Response: (4) open spontaneously Motor Response: (6) obeys commands Verbal Response: (5) oriented Psychiatric exam: Present: normal affect, normal mood Skin exam: Present: normal color Course Vital Signs 02/12/21 12:03 Temperature 98.0 F Pulse Rate 81 Respiratory 18 Rate Blood Pressure 133/93 O2 Sat by Pulse 100 Oximetry Medical Decision Making - Medical Decision Making Case was discussed with neurology, Dr. Esparza who recommends discharge with Keppra and outpatient follow-up. Patient updated and is comfortable and agreeable with this. Disposition Clinical Impression: Seizure Disposition: HOME SELF-CARE Condition: Stable Instructions (If sedation given, give patient instructions): New-Onset Seizure in Adults (ED), Recurrent Seizures in Adults (ED) Additional Instructions: Please follow-up to primary care physician in the next day or 2 for recheck, number provided if unable to follow-up with your regular doctor. Please discuss with your primary care physician regarding possible follow-up with neurology. Prescription for seizure medication and muscle extra has been sent to pharmacy. Prescriptions: Cyclobenzaprine [Flexeril] 10 mg PO TID PRN #12 tablet PRN Reason: Pain levETIRAcetam [Keppra] 1 tab PO BID #28 tab Is patient prescribed a controlled substance at d/c from ED?: No Referrals: Lata Grande MD [REFERRING] - 1-2 days Time of Disposition: 12:54
[2021-02-12 13:04] VITALS: BP 130/89; PULSE 82; TEMP 98.1
== END 2021-02-12 13:02 | disposition home or self-care (01) ==
LOC: EC 11:57
DX: G40.909 Epilepsy, unspecified, not intractable, without status epilepticus (principal); E11.9 Type 2 diabetes mellitus without complications; F17.200 Nicotine dependence, unspecified, uncomplicated; Z79.4 Long term (current) use of insulin; Z79.51 Long term (current) use of inhaled steroids; Z79.899 Other long term (current) drug therapy; Z80.3 Family history of malignant neoplasm of breast; Z82.49 Family history of ischemic heart disease and other diseases of the circulatory system; Z88.8 Allergy status to other drugs, medicaments and biological substances
CPT/HCPCS: 99283

== ENCOUNTER 2021-02-21 08:51 | Emergency (ER) | payer OTHER ==
[2021-02-21 09:23] VITALS: BP 148/90; PULSE 80; RESP 20; TEMP 98.7
--- NOTE | 2021-02-21 10:06 | XR ---
EXAMINATION TYPE: XR knee complete LT DATE OF EXAM: 02/21/2021 COMPARISON: 05/05/2010 HISTORY: Pain TECHNIQUE: Three views are submitted. FINDINGS: Extensive postsurgical change noted with no diagnostic evidence of acute fracture or dislocation. Mil d diffuse osteopenia. Hypertrophic spurring along the medial femoral condyle. IMPRESSION: 1. Postoperative change.
--- NOTE | 2021-02-21 10:17 | ED ---
Lower Extremity Injury HPI - General Chief Complaint: Extremity Injury, Lower Stated Complaint: frequent falls, knee pain Time Seen by Provider: 02/21/21 09:18 Source: patient, RN notes reviewed Mode of arrival: ambulatory Limitations: no limitations - History of Present Illness Initial Comments: 45-year-old male present emergency department with chief complaint of left knee pain. Patient states that he had a couple falls and his left knee. He is mechanical falls no head injury no loss conscious today. Patient states he is here last week for seizure. Patient denies any paresthesias denies any bowel bladder distention no back pain. Patient had a prior knee replacement by Dr. Gabriel. Patient does not have a current orthopedics physician. - Related Data Home Medications Medication Instructions Recorded Confirmed Albuterol Sulfate [Albuterol 2 puff INHALATION RT-Q4H PRN 02/10/21 02/12/21 Sulfate Hfa] Ferrous Sulfate [Feosol] 325 mg PO BID 02/10/21 02/12/21 Fluticasone/Salmeterol [Advair 1 puff INHALATION RT-BID 02/10/21 02/12/21 250-50 Diskus] Gabapentin [Neurontin] 1,200 mg PO TID 02/10/21 02/12/21 Insulin Glargine,Hum.rec.anlog 48 unit SQ HS 02/10/21 02/12/21 [Lantus Solostar] Insulin Lispro [humaLOG Kwikpen] See Protocol SQ AC-TID 02/10/21 02/12/21 Lidocaine 5% Patch [Lidoderm] 1 patch TOPICAL TID 02/10/21 02/12/21 Ondansetron [Zofran ODT] 4 mg PO TID PRN 02/10/21 02/12/21 QUEtiapine [SEROquel] 400 mg PO HS 02/10/21 02/12/21 Rosuvastatin Calcium [Crestor] 10 mg PO DAILY 02/10/21 02/12/21 busPIRone HCL [Buspar] 30 mg PO BID 02/10/21 02/12/21 cloNIDine HCL [Catapres] 0.2 mg PO TID 02/10/21 02/12/21 haloperidoL [Haldol] 2 mg PO BID PRN 02/10/21 02/12/21 hydrOXYzine HCL 10 mg PO TID PRN 02/10/21 02/12/21 Previous Rx's Medication Instructions Recorded Cyclobenzaprine [Flexeril] 10 mg PO TID PRN #12 tablet 02/12/21 levETIRAcetam [Keppra] 1 tab PO BID #28 tab 02/12/21 Ibuprofen [Motrin] 600 mg PO Q8HR PRN #20 tab 02/21/21 Allergies Allergy/AdvReac Type Severity Reaction Status Date / Time codeine Allergy Rash/Hives Verified 02/12/21 12:38 meloxicam Allergy Unknown Verified 02/12/21 12:38 Review of Systems ROS Statement: Those systems with pertinent positive or pertinent negative responses have been documented in the HPI. ROS Other: All systems not noted in ROS Statement are negative. Past Medical History Past Medical History: Diabetes Mellitus, Seizure Disorder History of Any Multi-Drug Resistant Organisms: None Reported Past Surgical History: Cholecystectomy Additional Past Surgical History / Comment(s): Spleen, Pancreas Past Anesthesia/Blood Transfusion Reactions: No Reported Reaction Past Psychological History: Bipolar, Panic Disorder, Schizophrenia Smoking Status: Current every day smoker Past Alcohol Use History: None Reported Past Drug Use History: Marijuana - Past Family History Mother Family Medical History: Cancer, Hypertension Additional Family Medical History / Comment(s): breast ca Father Family Medical History: Coronary Artery Disease (CAD) General Exam Limitations: no limitations General appearance: alert, in no apparent distress Head exam: Present: atraumatic, normocephalic, normal inspection Respiratory exam: Present: normal lung sounds bilaterally. Absent: respiratory distress, wheezes, rales, rhonchi, stridor Cardiovascular Exam: Present: regular rate, normal rhythm, normal heart sounds. Absent: systolic murmur, diastolic murmur, rubs, gallop, clicks Extremities exam: Present: other (Left knee there is old surgical scar noted, patient reports pain with range of motion no laxity noted mild tenderness of palpation.) Course Vital Signs 02/21/21 09:00 Temperature 98.7 F Pulse Rate 80 Respiratory 20 Rate Blood Pressure 148/90 O2 Sat by Pulse 99 Oximetry Medical Decision Making - Medical Decision Making X-ray shows postoperative changes otherwise no acute abnormality. Patient we discharged with follow-up with orthopedics return parameters were discussed. Disposition Clinical Impression: Contusion of left knee, Left knee pain Disposition: HOME SELF-CARE Condition: Stable Instructions (If sedation given, give patient instructions): Knee Pain (ED) Additional Instructions: Please return to the Emergency Department if symptoms worsen or any other concerns. Prescriptions: Ibuprofen [Motrin] 600 mg PO Q8HR PRN #20 tab PRN Reason: Pain Is patient prescribed a controlled substance at d/c from ED?: No Referrals: None,Stated [Primary Care Provider] - 1-2 days Alice Felix, [Doctor of Osteopathic Medicine] - 1-2 days
== END 2021-02-21 11:07 | disposition home or self-care (01) ==
LOC: EC 08:51
DX: S80.02XA Contusion of left knee, initial encounter (principal); E11.9 Type 2 diabetes mellitus without complications; G40.909 Epilepsy, unspecified, not intractable, without status epilepticus; F31.9 Bipolar disorder, unspecified; F17.200 Nicotine dependence, unspecified, uncomplicated; F12.90 Cannabis use, unspecified, uncomplicated; Z79.4 Long term (current) use of insulin; Z79.1 Long term (current) use of non-steroidal anti-inflammatories (NSAID); W18.30XA Fall on same level, unspecified, initial encounter
CPT/HCPCS: 99283

== ENCOUNTER 2021-04-22 11:55 | Observation (INO) | payer OTHER ==
[2021-04-22 12:02] VITALS: TEMP 98
[2021-04-22] MEDS ORDERED: LORazepam 2 MG/ML INJ IV STA (12:17)
--- NOTE | 2021-04-22 12:24 | ED ---
General Adult HPI - General Chief complaint: Syncope Stated complaint: Seizure Time Seen by Provider: 04/22/21 12:11 Source: patient, EMS, RN notes reviewed Mode of arrival: EMS Limitations: no limitations - History of Present Illness Initial comments: Patient is a pleasant 46-year-old male presenting to the emergency Department with complaints of abnormal episode. Patient was eating with his friends. Patient had decreased responsiveness and did fall out of his chair. Patient does not complain of any headache. Patient does not feel like he struck his head. Patient is unclear whether or not he could've had a seizure. Patient states he is off his medications because somebody took them. Patient is unclear how long he is off his medications for. Patient cannot explain why he cannot answer this. Patient states he feels generally weak all over. - Related Data Home Medications Medication Instructions Recorded Confirmed Gabapentin [Neurontin] 1,200 mg PO TID 02/10/21 04/22/21 Insulin Glargine,Hum.rec.anlog 48 unit SQ HS 02/10/21 04/22/21 [Lantus Solostar] Lidocaine 5% Patch [Lidoderm] 1 patch TOPICAL DAILY 02/10/21 04/22/21 Ondansetron [Zofran ODT] 4 mg PO TID PRN 02/10/21 04/22/21 QUEtiapine [SEROquel] 400 mg PO HS 02/10/21 04/22/21 busPIRone HCL [Buspar] 30 mg PO BID 02/10/21 04/22/21 Famotidine [Pepcid] 20 mg PO BID 04/22/21 04/22/21 Insulin Lispro [humaLOG Kwikpen] 8 unit SQ AC-TID 04/22/21 04/22/21 Losartan Potassium 100 mg PO DAILY 04/22/21 04/22/21 Mirtazapine [Remeron] 30 mg PO HS 04/22/21 04/22/21 haloperidoL [Haldol] 10 mg PO BID PRN 04/22/21 04/22/21 levETIRAcetam [Keppra] 750 mg PO BID 04/22/21 04/22/21 Previous Rx's Medication Instructions Recorded Cyclobenzaprine [Flexeril] 10 mg PO TID PRN #12 tablet 02/12/21 Allergies Allergy/AdvReac Type Severity Reaction Status Date / Time codeine Allergy Rash/Hives Verified 04/22/21 13:55 meloxicam Allergy Unknown Verified 04/22/21 13:55 Review of Systems ROS Statement: Those systems with pertinent positive or pertinent negative responses have been documented in the HPI. ROS Other: All systems not noted in ROS Statement are negative. Constitutional: Denies: fever Eyes: Denies: eye pain ENT: Denies: ear pain Respiratory: Reports: dyspnea. Denies: cough Cardiovascular: Denies: chest pain Endocrine: Denies: fatigue Gastrointestinal: Denies: abdominal pain Genitourinary: Denies: dysuria Musculoskeletal: Denies: back pain Skin: Denies: rash Neurological: Reports: as per HPI. Denies: headache Past Medical History Past Medical History: Diabetes Mellitus, Seizure Disorder History of Any Multi-Drug Resistant Organisms: None Reported Past Surgical History: Cholecystectomy Additional Past Surgical History / Comment(s): Spleen, Pancreas Past Anesthesia/Blood Transfusion Reactions: No Reported Reaction Past Psychological History: Bipolar, Panic Disorder, Schizophrenia Smoking Status: Current every day smoker Past Alcohol Use History: None Reported Past Drug Use History: Marijuana - Past Family History Mother Family Medical History: Cancer, Hypertension Additional Family Medical History / Comment(s): breast ca Father Family Medical History: Coronary Artery Disease (CAD) General Exam Limitations: no limitations General appearance: alert, in no apparent distress Head exam: Present: atraumatic Eye exam: Present: normal appearance, PERRL ENT exam: Present: normal oropharynx Neck exam: Present: normal inspection Respiratory exam: Present: normal lung sounds bilaterally Cardiovascular Exam: Present: regular rate, normal rhythm GI/Abdominal exam: Present: soft. Absent: tenderness Extremities exam: Present: normal inspection. 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 ID 134. QRS 78. QT 368. QTC 502. Normal axis. Normal QRS. Nonspecific ST-T. Medical Decision Making - Medical Decision Making Patient reevaluated and resting comfortably in bed. Patient remains drowsy. Patient oriented to place and self only. Case discussed with Dr. edwards, who will admit covering hospital call. - Lab Data Result diagrams: 04/22/21 12:20 04/22/21 12:20 Lab Results 04/22/21 04/22/21 04/22/21 Range/Units 12:20 12:20 12:20 WBC 7.8 (3.8-10.6) k/uL RBC 5.78 (4.30-5.90) m/uL Hgb 17.5 (13.0-17.5) gm/dL Hct 50.3 (39.0-53.0) % MCV 87.1 (80.0-100.0) fL MCH 30.2 (25.0-35.0) pg MCHC 34.7 (31.0-37.0) g/dL RDW 13.5 (11.5-15.5) % Plt Count 335 (150-450) k/uL MPV 9.4 Neutrophils % 53 % Lymphocytes % 38 % Monocytes % 5 % Eosinophils % 1 % Basophils % 1 % Neutrophils # 4.1 (1.3-7.7) k/uL Lymphocytes # 3.0 (1.0-4.8) k/uL Monocytes # 0.4 (0-1.0) k/uL Eosinophils # 0.1 (0-0.7) k/uL Basophils # 0.1 (0-0.2) k/uL PT 12.3 H (9.0-12.0) sec INR 1.2 H (<1.2) APTT 22.1 (22.0-30.0) sec D-Dimer 0.85 H (<0.60) mg/L FEU Sodium 136 L (137-145) mmol/L Potassium 4.4 (3.5-5.1) mmol/L Chloride 106 (98-107) mmol/L Carbon Dioxide 17 L (22-30) mmol/L Anion Gap 13 mmol/L BUN 9 (9-20) mg/dL Creatinine 0.90 (0.66-1.25) mg/dL Est GFR (CKD-EPI)AfAm >90 (>60 ml/min/1.73 sqM) Est GFR (CKD-EPI)NonAf >90 (>60 ml/min/1.73 sqM) Glucose 171 H (74-99) mg/dL Calcium 11.5 H (8.4-10.2) mg/dL Magnesium 1.7 (1.6-2.3) mg/dL Total Bilirubin 0.7 (0.2-1.3) mg/dL AST 48 (17-59) U/L ALT 43 (4-49) U/L Alkaline Phosphatase 130 H (38-126) U/L Troponin I (0.000-0.034) ng/mL Total Protein 7.9 (6.3-8.2) g/dL Albumin 4.9 (3.5-5.0) g/dL Coronavirus (PCR) (Not Detectd) 04/22/21 04/22/21 Range/Units 12:20 12:20 WBC (3.8-10.6) k/uL RBC (4.30-5.90) m/uL Hgb (13.0-17.5) gm/dL Hct (39.0-53.0) % MCV (80.0-100.0) fL MCH (25.0-35.0) pg MCHC (31.0-37.0) g/dL RDW (11.5-15.5) % Plt Count (150-450) k/uL MPV Neutrophils % % Lymphocytes % % Monocytes % % Eosinophils % % Basophils % % Neutrophils # (1.3-7.7) k/uL Lymphocytes # (1.0-4.8) k/uL Monocytes # (0-1.0) k/uL Eosinophils # (0-0.7) k/uL Basophils # (0-0.2) k/uL PT (9.0-12.0) sec INR (<1.2) APTT (22.0-30.0) sec D-Dimer (<0.60) mg/L FEU Sodium (137-145) mmol/L Potassium (3.5-5.1) mmol/L Chloride (98-107) mmol/L Carbon Dioxide (22-30) mmol/L Anion Gap mmol/L BUN (9-20) mg/dL Creatinine (0.66-1.25) mg/dL Est GFR (CKD-EPI)AfAm (>60 ml/min/1.73 sqM) Est GFR (CKD-EPI)NonAf (>60 ml/min/1.73 sqM) Glucose (74-99) mg/dL Calcium (8.4-10.2) mg/dL Magnesium (1.6-2.3) mg/dL Total Bilirubin (0.2-1.3) mg/dL AST (17-59) U/L ALT (4-49) U/L Alkaline Phosphatase (38-126) U/L Troponin I <0.012 (0.000-0.034) ng/mL Total Protein (6.3-8.2) g/dL Albumin (3.5-5.0) g/dL Coronavirus (PCR) Not Detected (Not Detectd) - Radiology Data Radiology results: report reviewed (Computed tomography scan of the brain reveals no acute process. Computed tomography scan of the chest shows no evidence of pulmonary embolism), image reviewed (Chest x-ray shows no acute process.) Disposition Clinical Impression: Unresponsive episode Disposition: ADMITTED IP TO THIS HOSP Is patient prescribed a controlled substance at d/c from ED?: No Referrals: None,Stated [Primary Care Provider] - 1-2 days Decision Time: 14:49
[2021-04-22 12:38] LABS: Basophils # (A) 0.1 k/uL (0-0.2); Basophils % (A) 1 %; Eosinophils # (A) 0.1 k/uL (0-0.7); Eosinophils % (A) 1 %; HCT 50.3 % (39.0-53.0); HGB 17.5 gm/dL (13.0-17.5); Lymphocytes % (A) 38 %; MCH 30.2 pg (25.0-35.0); MCHC 34.7 g/dL (31.0-37.0); MCV 87.1 fL (80.0-100.0); Mean Platelet Volume 9.4; Monocytes # (A) 0.4 k/uL (0-1.0); Monocytes % (A) 5 %; Neutrophils # (A) 4.1 k/uL (1.3-7.7); Neutrophils % (A) 53 %; Platelet Count 335 k/uL (150-450); RBC 5.78 m/uL (4.30-5.90); RDW 13.5 % (11.5-15.5); WBC 7.8 k/uL (3.8-10.6)
[2021-04-22 12:51] LABS: ALT 43 U/L (4-49); AST 48 U/L (17-59); African American GFR (CKD) >90 (>60 ml/min/1.73 sqM); Albumin 4.9 g/dL (3.5-5.0); Alkaline Phosphatase 130 U/L (38-126); Anion Gap 13 mmol/L; Blood Urea Nitrogen 9 mg/dL (9-20); Calcium 11.5 mg/dL (8.4-10.2); Carbon Dioxide 17 mmol/L (22-30); Chloride 106 mmol/L (98-107); Glucose 171 mg/dL (74-99); Non-African American GFR(CKD) >90 (>60 ml/min/1.73 sqM); Potassium 4.4 mmol/L (3.5-5.1); Sodium 136 mmol/L (137-145); Total Bilirubin 0.7 mg/dL (0.2-1.3); Total Protein 7.9 g/dL (6.3-8.2)
--- NOTE | 2021-04-22 12:56 | CT ---
EXAMINATION TYPE: CT brain wo con DATE OF EXAM: 04/22/2021 COMPARISON: 02/10/2021 INDICATION: Syncopal episode, possible seizure. History of seizures. DLP: 1201.4 mGycm, Automated exposure control for dose reduction was used. CONTRAST: None CT of the brain is performed utilizing 3 mm thick sections through the posterior fossa and 3 mm thick sections through the remaining calvarium. Study is performed within 24 hours of arrival to the hosp ital. No abnormal hyperdensity is present to suggest an acute intracranial hemorrhage. No mass lesion is evident. No acute infarcts are evident. Ventricles and sulci are appropriate for the patient age. Paranasal sinuses and mastoid air cells within the [id number] are clear. IMPRESSIONS: 1. No acute intracranial process radiographically evident.
[2021-04-22 12:57] LABS: INR 1.2 (<1.2); Partial Thromboplastin Time 22.1 sec (22.0-30.0); Prothrombin Time 12.3 sec (9.0-12.0)
--- NOTE | 2021-04-22 13:06 | XR ---
EXAMINATION TYPE: XR chest 2V DATE OF EXAM: 04/22/2021 COMPARISON: Chest x-ray February 10, 2021 HISTORY: Seizure with weakness. TECHNIQUE: Frontal and lateral views of the chest are obtained. FINDINGS: Overlying EKG leads redemonstrated. There is mild chronic parenchymal change bilaterally wi thout suspicious new focal air space opacity, pleural effusion, or pneumothorax seen. The cardiac si lhouette size is stable and within normal limits. The osseous structures are intact. IMPRESSION: No acute cardiopulmonary process. No significant change from prior.
[2021-04-22 13:16] VITALS: RESP 18
[2021-04-22 13:19] LABS: Magnesium 1.7 mg/dL (1.6-2.3)
--- NOTE | 2021-04-22 14:10 | CT ---
CT CHEST FOR PULMONARY EMBOLISM. EXAMINATION TYPE: CT angio chest DATE OF EXAM: 04/22/2021 INDICATION: dyspnea CT DLP: 520 mGycm, Automated exposure control for dose reduction was used. CONTRAST: Patient injected with 100 mL of Isovue 370. COMPARISON: None TECHNIQUE: CT of the chest is performed on a spiral scan at 2 mm thick sections. Study is performed with intravenous contrast timed for evaluation for pulmonary embolism. This will limit additional po rtions of the evaluation. 3-D MIP images reconstructed by the technologist are reviewed on the compu ter in the coronal and sagittal planes. FINDINGS: No persistent filling defects are evident to suggest an acute pulmonary embolism. No mediastinal or hilar adenopathy enlarged by CT criteria is evident. The ascending aorta diameter at the level of the main pulmonary artery is 3.5 cm. The main pulmonary artery diameter at the bifur cation is 3.0 cm. Lung windows are essentially clear. Minimal scarring may be at the left apex. Limited CT section through the upper abdomen are unremarkable. Portion of the thyroid visualized is n ormal. IMPRESSIONS: 1. No acute pulmonary embolism
[2021-04-22] MEDS ORDERED: LORazepam 2 MG/ML INJ IV PRN (14:50)
[2021-04-22] MEDS ORDERED: NALOXONE 0.4 MG/ML 1 ML VIAL IV PRN (14:50)
[2021-04-22 14:51] VITALS: PULSE 61
[2021-04-22] MEDS ORDERED: levETIRAcetam IV 750 MG in SODIUM CHLORIDE 0.9% 100 ML IVPB SCH (15:00)
[2021-04-22] MEDS ORDERED: SODIUM CHLORIDE 0.9% 1,000 ML IV SCH (15:00)
[2021-04-22 16:11] VITALS: BP 143/85
--- NOTE | 2021-04-22 16:43 | P.HPIM ---
History of Present Illness 46-year-old male came in after he had a episode of decreased responsiveness. Patient is a highly noncompliant and patient does have seizure history patient apparently had multiple hospital physicians because of this. I try to get h istory from the patient patient is malignant from start and he sees the hospital took his phone and is not willing to answer questions patient was ailing shouting at me. Didn't answer any of my questions when asked why he is not taking his medications he sees his medications were taken from him. Patient doesn't follow any of her recommendations very difficult historian to obtain any kind of history from the patient. REVIEW OF SYSTEMS: Unable to obtain because of her above-mentioned clinical condition PHYSICAL EXAMINATION: GENERAL: The patient is alert and oriented x3, not in any acute distress. Well developed, well nourished. SKIN: No rashes. Patient is highly noncompliant unable to do much of the physical exam. Doesn't appear to have any focal deficits Assessment and plan Breakthrough seizures due to noncompliance with medications: The patient will be started back on antiseizure medications, and Keppra level will be obtained on neurology was consulted Schizophrenia. Bipolar disorder -Diabetes mellitus with diabetic peripheral neuropathy -Hypertension For above-mentioned chronic medical problems patient will be resumed on appropriate home medications DVT prophylaxis: Lovenox Past Medical History Past Medical History: Diabetes Mellitus, Seizure Disorder History of Any Multi-Drug Resistant Organisms: None Reported Past Surgical History: Cholecystectomy Additional Past Surgical History / Comment(s): Spleen, Pancreas Past Anesthesia/Blood Transfusion Reactions: No Reported Reaction Past Psychological History: Bipolar, Panic Disorder, Schizophrenia Smoking Status: Current every day smoker Past Alcohol Use History: None Reported Past Drug Use History: Marijuana - Past Family History Mother Family Medical History: Cancer, Hypertension Additional Family Medical History / Comment(s): breast ca Father Family Medical History: Coronary Artery Disease (CAD) Medications and Allergies Home Medications Medication Instructions Recorded Confirmed Type Gabapentin [Neurontin] 1,200 mg PO TID 02/10/21 04/22/21 History Insulin Glargine,Hum.rec.anlog 48 unit SQ HS 02/10/21 04/22/21 History [Lantus Solostar] Lidocaine 5% Patch [Lidoderm] 1 patch TOPICAL DAILY 02/10/21 04/22/21 History Ondansetron [Zofran ODT] 4 mg PO TID PRN 02/10/21 04/22/21 History QUEtiapine [SEROquel] 400 mg PO HS 02/10/21 04/22/21 History busPIRone HCL [Buspar] 30 mg PO BID 02/10/21 04/22/21 History Cyclobenzaprine [Flexeril] 10 mg PO TID PRN #12 tablet 02/12/21 04/22/21 Rx Famotidine [Pepcid] 20 mg PO BID 04/22/21 04/22/21 History Insulin Lispro [humaLOG Kwikpen] 8 unit SQ AC-TID 04/22/21 04/22/21 History Losartan Potassium 100 mg PO DAILY 04/22/21 04/22/21 History Mirtazapine [Remeron] 30 mg PO HS 04/22/21 04/22/21 History haloperidoL [Haldol] 10 mg PO BID PRN 04/22/21 04/22/21 History levETIRAcetam [Keppra] 750 mg PO BID 04/22/21 04/22/21 History Allergies Allergy/AdvReac Type Severity Reaction Status Date / Time codeine Allergy Rash/Hives Verified 04/22/21 13:55 meloxicam Allergy Unknown Verified 04/22/21 13:55 Physical Exam Vitals: Vital Signs Temp Pulse Pulse Resp BP Pulse Ox 04/22/21 16:10 61 18 143/85 99 04/22/21 14:50 61 18 122/81 99 04/22/21 13:14 76 18 124/81 99 04/22/21 12:13 104 H 04/22/21 11:57 98 F 105 H 36 H 148/111 98 Intake and Output 04/22/21 04/22/21 04/22/21 06:59 14:59 22:59 Other: Weight 79.379 kg Results CBC & Chem 7: 04/22/21 12:20 04/22/21 12:20 Labs: Abnormal Lab Results - Last 24 Hours (Table) 04/22/21 04/22/21 Range/Units 12:20 12:20 PT 12.3 H (9.0-12.0) sec INR 1.2 H (<1.2) D-Dimer 0.85 H (<0.60) mg/L FEU Sodium 136 L (137-145) mmol/L Carbon Dioxide 17 L (22-30) mmol/L Glucose 171 H (74-99) mg/dL Calcium 11.5 H (8.4-10.2) mg/dL Alkaline Phosphatase 130 H (38-126) U/L
--- NOTE | 2021-04-22 16:43 | P.DS ---
Providers Date of admission: 04/22/21 15:02 Attending physician: Mega Calixto MD Consults: 04/22/21 14:50 Consult Physician Urgent Consulting Provider: Pramod Esparza Consult Reason/Comments: ams Do you want consulting provider notified?: Yes Primary care physician: Stated None Hospital Course: She was belligerent and shouting at all the staff and patient later left AGAINST MEDICAL ADVICE Plan - Discharge Summary New Discharge Prescriptions: No Action Insulin Glargine,Hum.rec.anlog [Lantus Solostar] 48 unit SQ HS QUEtiapine [SEROquel] 400 mg PO HS Ondansetron [Zofran ODT] 4 mg PO TID PRN PRN Reason: Nausea levETIRAcetam [Keppra] 750 mg PO BID Losartan Potassium 100 mg PO DAILY Gabapentin [Neurontin] 1,200 mg PO TID Lidocaine 5% Patch [Lidoderm] 1 patch TOPICAL DAILY busPIRone HCL [Buspar] 30 mg PO BID Cyclobenzaprine [Flexeril] 10 mg PO TID PRN #12 tablet PRN Reason: Pain Famotidine [Pepcid] 20 mg PO BID haloperidoL [Haldol] 10 mg PO BID PRN PRN Reason: Agitation Insulin Lispro [humaLOG Kwikpen] 8 unit SQ AC-TID Mirtazapine [Remeron] 30 mg PO HS Discharge Medication List Gabapentin [Neurontin] 1,200 mg PO TID 02/10/21 [History] Insulin Glargine,Hum.rec.anlog [Lantus Solostar] 48 unit SQ HS 02/10/21 [History] Lidocaine 5% Patch [Lidoderm] 1 patch TOPICAL DAILY 02/10/21 [History] Ondansetron [Zofran ODT] 4 mg PO TID PRN 02/10/21 [History] QUEtiapine [SEROquel] 400 mg PO HS 02/10/21 [History] busPIRone HCL [Buspar] 30 mg PO BID 02/10/21 [History] Cyclobenzaprine [Flexeril] 10 mg PO TID PRN #12 tablet 02/12/21 [Rx] Famotidine [Pepcid] 20 mg PO BID 04/22/21 [History] Insulin Lispro [humaLOG Kwikpen] 8 unit SQ AC-TID 04/22/21 [History] Losartan Potassium 100 mg PO DAILY 04/22/21 [History] Mirtazapine [Remeron] 30 mg PO HS 04/22/21 [History] haloperidoL [Haldol] 10 mg PO BID PRN 04/22/21 [History] levETIRAcetam [Keppra] 750 mg PO BID 04/22/21 [History] Follow up Appointment(s)/Referral(s): None,Stated [Primary Care Provider] - 1-2 days
== END 2021-04-22 16:51 | disposition left against medical advice (07) ==
LOC: EC 11:55 → 6NMEDSUR 15:02 → 5NMEDONC 15:25
PROVIDERS: ADMIT Internal Medicine; ATTEND Internal Medicine
DX: G40.909 Epilepsy, unspecified, not intractable, without status epilepticus (principal); I10 Essential (primary) hypertension; E11.42 Type 2 diabetes mellitus with diabetic polyneuropathy; F20.9 Schizophrenia, unspecified; F41.0 Panic disorder [episodic paroxysmal anxiety]; F31.9 Bipolar disorder, unspecified; F17.200 Nicotine dependence, unspecified, uncomplicated; Z91.14 Patient's other noncompliance with medication regimen; Z91.19 Patient's noncompliance with other medical treatment and regimen; Z20.822 Contact with and (suspected) exposure to COVID-19; Z79.4 Long term (current) use of insulin; Z79.899 Other long term (current) drug therapy; Z88.5 Allergy status to narcotic agent; Z88.6 Allergy status to analgesic agent; Z90.49 Acquired absence of other specified parts of digestive tract; Z98.890 Other specified postprocedural states; W07.XXXA Fall from chair, initial encounter; Z82.49 Family history of ischemic heart disease and other diseases of the circulatory system; Z80.3 Family history of malignant neoplasm of breast; Z53.29 Procedure and treatment not carried out because of patient's decision for other reasons
CPT/HCPCS: 96374; 96375; 99285; 93005; 85379; 80053; 80177; 83735; 84484; 85025; 85610; 85730; 87635; 71046; 70450; 71275; G0378; J2060; J1953; Q9967

== ENCOUNTER 2024-03-24 08:18 | Emergency (ER) | payer OTHER ==
[2024-03-24 08:24] LABS: Glucose,Whole Blood >600 mg/dL (70-110)
--- NOTE | 2024-03-24 08:38 | ED ---
General Adult HPI - General Chief complaint: Weakness Stated complaint: Hypergylcemic Time Seen by Provider: 03/24/24 08:25 Source: patient Mode of arrival: ambulatory Limitations: no limitations - History of Present Illness Initial comments: Dictation was produced using [employer] dictation software. please excuse any grammatical, word or spelling errors. Chief Complaint: 49-year-old male with polydipsia History of Present Illness: Patient is a 49-year-old homeless male states that for the last couple days he has been very thirsty. He is a insulin-dependent diabetic he is homeless not taking his medications. Patient denies any pain complaints. Patient states that he is worried that his blood sugar is high. He does not have a meter because she states he cannot afford it. Denies any fever, chills or night sweats. The ROS documented in this emergency department record has been reviewed and confirmed by me. Those systems with pertinent positive or negative responses have been documented in the HPI. All other systems are other negative and/or noncontributory. - Related Data Home Medications Medication Instructions Recorded Confirmed Gabapentin [Neurontin] 1,200 mg PO TID 02/10/21 04/22/21 Insulin Glargine,Hum.rec.anlog 48 unit SQ HS 02/10/21 04/22/21 [Lantus Solostar] Lidocaine 5% Patch [Lidoderm] 1 patch TOPICAL DAILY 02/10/21 04/22/21 Ondansetron [Zofran ODT] 4 mg PO TID PRN 02/10/21 04/22/21 QUEtiapine [SEROquel] 400 mg PO HS 02/10/21 04/22/21 busPIRone HCL [Buspar] 30 mg PO BID 02/10/21 04/22/21 Famotidine [Pepcid] 20 mg PO BID 04/22/21 04/22/21 Insulin Lispro [humaLOG Kwikpen] 8 unit SQ AC-TID 04/22/21 04/22/21 Losartan Potassium 100 mg PO DAILY 04/22/21 04/22/21 Mirtazapine [Remeron] 30 mg PO HS 04/22/21 04/22/21 haloperidoL [Haldol] 10 mg PO BID PRN 04/22/21 04/22/21 levETIRAcetam [Keppra] 750 mg PO BID 04/22/21 04/22/21 Previous Rx's Medication Instructions Recorded Cyclobenzaprine [Flexeril] 10 mg PO TID PRN #12 tablet 02/12/21 Allergies Allergy/AdvReac Type Severity Reaction Status Date / Time codeine Allergy Rash/Hives Verified 04/22/21 13:55 meloxicam Allergy Unknown Verified 04/22/21 13:55 Review of Systems ROS Statement: Those systems with pertinent positive or pertinent negative responses have been documented in the HPI. ROS Other: All systems not noted in ROS Statement are negative. Past Medical History Past Medical History: Diabetes Mellitus, Hyperlipidemia, Hypertension, Seizure Disorder Additional Past Medical History / Comment(s): panreatitis History of Any Multi-Drug Resistant Organisms: None Reported Past Surgical History: Cholecystectomy Additional Past Surgical History / Comment(s): Spleen, Pancreas Past Anesthesia/Blood Transfusion Reactions: No Reported Reaction Past Psychological History: Bipolar, Panic Disorder, Schizophrenia Smoking Status: Current every day smoker Past Alcohol Use History: None Reported Past Drug Use History: Marijuana - Past Family History Mother Family Medical History: Cancer, Hypertension Additional Family Medical History / Comment(s): breast ca Father Family Medical History: Coronary Artery Disease (CAD) General Exam - General Exam Comments Initial Comments: PHYSICAL EXAM: General Impression: Alert and oriented x3, not in acute distress HEENT: Normocephalic atraumatic, extra-ocular movements intact, pupils equal and reactive to light bilaterally, mucous membranes moist. Cardiovascular: Heart regular rate and rhythm Chest: Able to complete full sentences, no retractions, no tachypnea Abdomen: abdomen soft, non-tender, non-distended, no organomegaly Musculoskeletal: Pulses present and equal in all extremities, no peripheral edema Motor: no focal deficits noted Neurological: CN II-XII grossly intact, no focal motor or sensory deficits noted Skin: Intact with no visualized rashes Psych: Normal affect and mood Limitations: no limitations Course Vital Signs 03/24/24 03/24/24 03/24/24 08:20 08:47 09:31 Temperature 97.6 F Pulse Rate 90 85 84 Respiratory 16 20 16 Rate Blood Pressure 117/82 108/70 113/72 O2 Sat by Pulse 99 99 97 Oximetry Medical Decision Making - Medical Decision Making Was pt. sent in by a medical professional or institution (, PA, INTERSTATE PLANNER, urgent care, hospital, or fdc...) When possible be specific @ -No Did you speak to anyone other than the patient for history (EMS, parent, family, police, friend...)? What history was obtained from this source @ -No Did you review nursing and triage notes (agree or disagree)? Why? @ -I reviewed and agree with nursing and triage notes Were old charts reviewed (outside hosp., previous admission, EMS record, old EKG, old radiological studies, urgent care reports/EKG's, fdc records)? Report findings @ -No old charts were reviewed Differential Diagnosis (chest pain, altered mental status, abdominal pain women, abdominal pain men, vaginal bleeding, musculoskeletal, weakness, fever, dyspnea, syncope, headache, dizziness, GI bleed, back pain, seizure, CVA, palpatations, mental health)? @ -Differential Weakness: Hypoglycemia, shock, sepsis, hyponatremia, anemia, infection, ME, ETOH, adverse medicine reaction, overdose, stroke, this is not meant to be an all-inclusive list. EKG interpreted by me (3pts min.). @ -None done X-rays interpreted by me (1pt min.). @ -None done CT interpreted by me (1pt min.). @ -None done U/S interpreted by me (1pt. min.). @ -None done What testing was considered but not performed or refused? (CT, X-rays, U/S, labs)? Why? @ -None What meds were considered but not given or refused? Why? @ -None Was smoking cessation discussed for >3mins.? @ -No Were there social determinants of health that impacted care today? How? (Homelessness, low income, unemployed, alcoholism, drug addiction, transportation, low edu. Level, literacy, decrease access to med. care, half-way, rehab)? @ -No Was there de-escalation of care discussed even if they declined (Discuss DNR or withdrawal of care, Hospice)? DNR status @ -No What co-morbidities impacted this encounter? (DM, HTN, Smoking, COPD, CAD, Cancer, CVA, ARF, Chemo, Hep., AIDS, mental health diagnosis, sleep apnea, morbid obesity)? @ -None Was patient admitted / discharged? Hospital course, mention meds given and route, prescriptions, significant lab abnormalities, going to OR and other pertinent info. @ -49-year-old male who was insulin-dependent presents to the ER for concerns of high blood sugar due to symptoms of polydipsia. Vital signs stable. Patient well-appearing at the bedside. States that he is homeless. Laboratory evaluation obtained. CBC within acceptable limits. Metabolic panel shows pseudohyponatremia with sodium level 125. Initial glucose was 660. Patient given IV fluids and some insulin. No acidosis. Patient monitored in the emergency department for several hours. Blood sugar was corrected down to 250. Patient agreeable for discharge given outpatient referral to primary care doctors. Did you discuss the management of the patient with other professionals (professionals i.e. , PA, INTERSTATE PLANNER, lab, RT, psych nurse, clinical social work therapist, title search manager, teacher, learning and development officer, gearcase assembler)? Give summary @ -No Was critical care preformed (if so, how long)? @ -No Undiagnosed new problem with uncertain prognosis? @ -No Drug Therapy requiring intensive monitoring for toxicity (Heparin, Nitro, Insulin, Cardizem)? @ -No Were any procedures done? @ -No Diagnosis/symptom? Acute, or Chronic, or Acute on Chronic? Uncomplicated (without systemic symptoms) or Complicated (systemic symptoms)? @ -Hyperglycemia Side effects of treatment? @ -No Exacerbation, Progression, or Severe Exacerbation? @ -No Poses a threat to life or bodily function? How? (Chest pain, USA, ME, pneumonia, PE, COPD, DKA, ARF, appy, cholecystitis, CVA, Diverticulitis, Homicidal, Suicidal, threat to staff... and all critical care pts) @ -yes - Lab Data Result diagrams: 03/24/24 08:38 03/24/24 08:38 Lab Results 03/24/24 03/24/24 03/24/24 Range/Units 08:22 08:38 08:38 WBC 14.6 H (3.8-10.6) k/uL RBC 4.71 (4.30-5.90) m/uL Hgb 13.9 (13.0-17.5) gm/dL Hct 44.4 (39.0-53.0) % MCV 94.2 (80.0-100.0) fL MCH 29.5 (25.0-35.0) pg MCHC 31.3 (31.0-37.0) g/dL RDW 12.7 (11.5-15.5) % Plt Count 490 H (150-450) k/uL MPV 8.4 Neutrophils % 81 % Lymphocytes % 13 % Monocytes % 5 % Eosinophils % 0 % Basophils % 0 % Neutrophils # 11.9 H (1.3-7.7) k/uL Lymphocytes # 1.9 (1.0-4.8) k/uL Monocytes # 0.7 (0-1.0) k/uL Eosinophils # 0.0 (0-0.7) k/uL Basophils # 0.1 (0-0.2) k/uL Sodium 125 L (137-145) mmol/L Potassium 4.1 (3.5-5.1) mmol/L Chloride 93 L (98-107) mmol/L Carbon Dioxide 22 (22-30) mmol/L Anion Gap 10 mmol/L BUN 11 (9-20) mg/dL Creatinine 0.47 L (0.66-1.25) mg/dL Est GFR (CKD-EPI)AfAm >90 (>60 ml/min/1.73 sqM) Est GFR (CKD-EPI)NonAf >90 (>60 ml/min/1.73 sqM) Glucose 660 H* (74-99) mg/dL POC Glucose (mg/dL) >600 H* (70-110) mg/dL POC Glu [employer] Tender ID Hermann Bravo Calcium 9.2 (8.4-10.2) mg/dL Total Bilirubin 0.3 (0.2-1.3) mg/dL AST 14 L (17-59) U/L ALT 13 (4-49) U/L Alkaline Phosphatase 138 H (38-126) U/L Total Protein 6.1 L (6.3-8.2) g/dL Albumin 3.5 (3.5-5.0) g/dL 03/24/24 Range/Units 10:39 WBC (3.8-10.6) k/uL RBC (4.30-5.90) m/uL Hgb (13.0-17.5) gm/dL Hct (39.0-53.0) % MCV (80.0-100.0) fL MCH (25.0-35.0) pg MCHC (31.0-37.0) g/dL RDW (11.5-15.5) % Plt Count (150-450) k/uL MPV Neutrophils % % Lymphocytes % % Monocytes % % Eosinophils % % Basophils % % Neutrophils # (1.3-7.7) k/uL Lymphocytes # (1.0-4.8) k/uL Monocytes # (0-1.0) k/uL Eosinophils # (0-0.7) k/uL Basophils # (0-0.2) k/uL Sodium (137-145) mmol/L Potassium (3.5-5.1) mmol/L Chloride (98-107) mmol/L Carbon Dioxide (22-30) mmol/L Anion Gap mmol/L BUN (9-20) mg/dL Creatinine (0.66-1.25) mg/dL Est GFR (CKD-EPI)AfAm (>60 ml/min/1.73 sqM) Est GFR (CKD-EPI)NonAf (>60 ml/min/1.73 sqM) Glucose (74-99) mg/dL POC Glucose (mg/dL) 249 H (70-110) mg/dL POC Glu [employer] Tender ID Himanshu Collins Calcium (8.4-10.2) mg/dL Total Bilirubin (0.2-1.3) mg/dL AST (17-59) U/L ALT (4-49) U/L Alkaline Phosphatase (38-126) U/L Total Protein (6.3-8.2) g/dL Albumin (3.5-5.0) g/dL Disposition Clinical Impression: Hyperglycemia Disposition: HOME SELF-CARE Condition: Good Instructions (If sedation given, give patient instructions): Diabetic Hyperglycemia (ED) Is patient prescribed a controlled substance at d/c from ED?: No Referrals: Sancho Esteves MD [STAFF PHYSICIAN] - 1-2 days Tor Clinton MD [STAFF PHYSICIAN] - 1-2 days José Manuel Bunch DO [REFERRING] - 1-2 days Time of Disposition: 11:13
[2024-03-24 08:47] LABS: Basophils # (A) 0.1 k/uL (0-0.2); Basophils % (A) 0 %; Eosinophils % (A) 0 %; HCT 44.4 % (39.0-53.0); HGB 13.9 gm/dL (13.0-17.5); Lymphocytes # (A) 1.9 k/uL (1.0-4.8); Lymphocytes % (A) 13 %; MCH 29.5 pg (25.0-35.0); MCHC 31.3 g/dL (31.0-37.0); MCV 94.2 fL (80.0-100.0); Mean Platelet Volume 8.4; Monocytes # (A) 0.7 k/uL (0-1.0); Monocytes % (A) 5 %; Neutrophils # (A) 11.9 k/uL (1.3-7.7); Neutrophils % (A) 81 %; Platelet Count 490 k/uL (150-450); RBC 4.71 m/uL (4.30-5.90); RDW 12.7 % (11.5-15.5); WBC 14.6 k/uL (3.8-10.6)
[2024-03-24] MEDS: SODIUM CHLORIDE 0.9% 1,000 ML IV STA (08:47)
[2024-03-24 08:56] LABS: ALT 13 U/L (4-49); AST 14 U/L (17-59); African American GFR (CKD) >90 (>60 ml/min/1.73 sqM); Albumin 3.5 g/dL (3.5-5.0); Alkaline Phosphatase 138 U/L (38-126); Anion Gap 10 mmol/L; Blood Urea Nitrogen 11 mg/dL (9-20); Calcium 9.2 mg/dL (8.4-10.2); Carbon Dioxide 22 mmol/L (22-30); Chloride 93 mmol/L (98-107); Non-African American GFR(CKD) >90 (>60 ml/min/1.73 sqM); Potassium 4.1 mmol/L (3.5-5.1); Sodium 125 mmol/L (137-145); Total Bilirubin 0.3 mg/dL (0.2-1.3); Total Protein 6.1 g/dL (6.3-8.2)
[2024-03-24 09:06] LABS: Glucose 660 mg/dL (74-99)
[2024-03-24] MEDS: INSULIN REGULAR 100 UNIT/ML VIAL (IV) IV ONE (09:27)
[2024-03-24 10:41] LABS: Glucose,Whole Blood 249 mg/dL (70-110)
[2024-03-24 11:37] LABS: Glucose,Whole Blood 216 mg/dL (70-110)
[2024-03-24 11:50] VITALS: BP 116/96; PULSE 74; RESP 14; TEMP 97.9
== END 2024-03-24 11:53 | disposition home or self-care (01) ==
LOC: EC 08:18
DX: R73.9 Hyperglycemia, unspecified (principal); F17.200 Nicotine dependence, unspecified, uncomplicated; F12.90 Cannabis use, unspecified, uncomplicated; Z88.5 Allergy status to narcotic agent; Z88.8 Allergy status to other drugs, medicaments and biological substances
CPT/HCPCS: 36415; 80053; 85025; 96360; 99285